=== PATIENT | male | born 1995 | race Caucasian/White ===

== ENCOUNTER 2019-05-30 21:12 | Emergency (ER) | payer MEDICAID ==
[~2019-05-30] VITALS: Ht 172.7 cm; Wt 72.6 kg
--- NOTE | 2019-05-30 21:12 | NUR ---
Pt [facility] for medical clearance s/p forced arrest. Pt denies c/o pain or discomfort. Denies head trauma or bodily injuries, -LOC.
[2019-05-30 21:25] VITALS: BP_SYST 136
--- NOTE | 2019-05-30 21:25 | NUR ---
Dr. Renteria assessing pt.
[2019-05-30 21:45] VITALS: BP_SYST 126
--- NOTE | 2019-05-30 21:45 | NUR ---
Note undone in EDM - 05/31/19 at 0526 by [email or web address] chief operating officer given written and verbal discharge instructions and verbalizes understanding. ER discussed with patient the results and treatment provided. ID arm band removed. Patient educated on pain management and to follow up with PMD. Opportunity for questions provided and answered. Medication side effect fact sheet provided. Pt leaves in c/o peace officers in cuffs, ambulates with steady gait, NAD, via squad car to long term.
--- NOTE | 2019-05-30 22:00 | NUR ---
transportation security officer given written and verbal discharge instructions and verbalizes understanding. ER MD discussed with patient the results and treatment provided. ID arm band removed. Patient educated on pain management and to follow up with PMD. Opportunity for questions provided and answered. Medication side effect fact sheet provided. Pt leaves in c/o peace officers in cuffs, ambulates with steady gait, NAD, via squad car to intermediate.
== END 2019-05-30 21:45 ==
LOC: SED 21:12 → EDBD 21:12 → SED 21:45
DX: Z02.89 Encounter for other administrative examinations (principal); R03.0 Elevated blood-pressure reading, without diagnosis of hypertension
CPT/HCPCS: 99283